=== PATIENT | male | born 1960 | race Two or more races ===

== ENCOUNTER 2018-10-07 17:30 | Inpatient (IN) | payer MEDICARE, MEDICAID ==
[~2018-10-07] VITALS: Ht 180.3 cm; Wt 74.8 kg
--- NOTE | 2018-10-07 19:10 | NUR ---
GPS ADMISSION NOTES: ADMITTED A 57-YR OLD MALE, FROM [facility]. PATIENT IS HOMELESS. ON 5150 FOR GD. PER HOLD, PT WAS FOUND TO BE SLEEPING AT GAS STATION AND PRESENTED WITH ALTERED MENTAL STATUS, SEVERE SUNBURNS FROM NOT ACCESSING MCC, MALODOROUS AND POOR HYGIENE. UPON FACE TO FACE ASSESSMENT, PATIENT IS AWAKE AND ALERT AND ORIENTED X1. PATIENT IS ANXIOUS, UNCOOPERATIVE, UNKEMPT, DISHEVELED, UNPREDICTABLE, ANGRY, IRRITABLE, CONFUSED, NO AGITATION NOTED. VERBALIZATION OF FEELINGS ENCOURAGED. REALITY ORIENTATION PROVIDED. PT. WAS ADVISED OF THE HOLD. PT'S RIGHTS DISCUSSED GUIDE TO PRESCRIPTION MEDICATIONS PROVIDED. IN NO APPARENT DISTRESS NOTED. BELONGINGS WERE INVENTORIED AND CHECKED FOR CONTRABAND. PT. IS UNDER THE PSYCHIATRIC CARE OF DR. KELLY ORDERS OBTAINED, AND UNDER THE MEDICAL CARE OF EDMOND FAIRCHILD. SEEN AND EXAMINED PT. AT BEDSIDE BY EDMOND FAIRCHILD. SKIN BODY ASSESSMENT DONE. WOUND CONSULT ORDERED. PT. REFUSED TO SIGN ADMITTING CONSENTS D/T MENTAL STATUS. BED LOCKED AND PLACED IN LOWEST POSITION TO MAINTAIN SAFETY. FALL PRECAUTIONS IMPLEMENTED. WILL CONTINUE TO MONITOR PT. Q15 MINS. FOR SAFETY AND BEHAVIOR. NO FAMILY TO NOTIFY OF PATIENT'S ADMISSION.
[2018-10-07 19:30] VITALS: BP 119/71
[2018-10-07 20:00] VITALS: BP 119/71
[2018-10-07] MEDS ORDERED: MAGNESIUM HYDROXIDE 30 ML UDC PO PRN (20:00)
[2018-10-07] MEDS ORDERED: ACETAMINOPHEN 325 MG TABLET PO PRN (20:00)
[2018-10-07] MEDS ORDERED: ZOLPIDEM TARTRATE 5 MG TABLET PO PRN (20:00)
[2018-10-07] MEDS ORDERED: LORAZEPAM 0.5 MG TABLET PO PRN (20:00)
[2018-10-07] MEDS ORDERED: MAG HYDROX/AL HYDROX/SIMETH 30 ML UDC PO PRN (20:00)
[2018-10-07] MEDS ORDERED: ARIP15TA3 PO (20:48)
[2018-10-07] MEDS ORDERED: ROSU20TA2 PO (20:48)
[2018-10-07] MEDS ORDERED: PRAV40TA3 PO (20:48)
[2018-10-07] MEDS ORDERED: FLUO20CA36 PO (20:48)
[2018-10-07] MEDS ORDERED: OLAN15TA3 PO (20:48)
[2018-10-07] MEDS ORDERED: BLOOD SUGAR DIAGNOSTIC 1 EACH STRIP IN ONE (22:00)
[2018-10-08 08:00] VITALS: BP 121/60
--- NOTE | 2018-10-08 12:25 | NUR ---
RN NOTES ADMINISTERED ATIVAN 1 MG PO PRN FOR ANXIETY, DELUSIONAL, AND ALCOHOL WINDROW AT THIS TIME PER PATIENT REQUEST, V/S TAKEN BP- 135/85, P-73, R-20, CONTINUED MONITORING.
[2018-10-08] MEDS: OLANZAPINE 5 MG/TAB.RAPDIS PO SCH ×2 (14:06→21:01)
--- NOTE | 2018-10-08 15:30 | NUR ---
rn notes medication were administered for anxiety effective, patient resting in the bed. continued monitoring.
[2018-10-08 16:00] VITALS: BP 104/72
[2018-10-08 20:07] VITALS: BP 111/64
[2018-10-08] MEDS: PRAVASTATIN SODIUM 20 MG TABLET PO SCH (21:32)
[2018-10-09 08:00] VITALS: BP_SYST 122; BP_SYST 131; BP_DIAS 80; BP_DIAS 90
[2018-10-09] MEDS: OLANZAPINE 5 MG/TAB.RAPDIS PO SCH ×2 (09:20→21:00)
--- NOTE | 2018-10-09 14:53 | NUR ---
INITIAL DISCHARGE PLAN: Pt may need SNF placement if refuses pt will be discharged to a homeless senior living. SW will help form a safe and proper discharge in collaboration with .
[2018-10-09 16:00] VITALS: BP 151/89
[2018-10-09 19:41] VITALS: BP 160/90
--- NOTE | 2018-10-09 21:53 | NUR ---
gps rn notes: patient refused his night time scheduled medications. per patient he doesn't need it and that he will talk to the doctor. will continue to monitor patient.
[2018-10-09 22:00] VITALS: BP 117/67
[2018-10-09] MEDS: PRAVASTATIN SODIUM 20 MG TABLET PO SCH (22:00)
[2018-10-10 08:00] VITALS: BP 144/98
[2018-10-10] MEDS: OLANZAPINE 5 MG/TAB.RAPDIS PO SCH ×2 (08:43→20:14)
--- NOTE | 2018-10-10 09:22 | NUR ---
WOUND CARE CONSULT: PT SMILED AND AGREED TO HAVE SKIN ASSESSMENT, THEN SUDDENLY REFUSED. WILL SEE PRN.
--- NOTE | 2018-10-10 10:20 | NUR ---
GPS/RN-NOTES PATIENT REFUSED FULL BODY ASSESSMENT BY THE WOUND NURSE RADHA. CHARGE NURSE AWARE.
--- NOTE | 2018-10-10 15:40 | NUR ---
GROUP NOTE: SW prompted pt to attend group on 10/10/18 at 2:30pm discussing conflict resolution techniques for while they are in the hospital and after discharge, but pt unable to participate in group.
[2018-10-10 16:00] VITALS: BP 128/90
[2018-10-10 20:17] VITALS: BP 128/91
[2018-10-10] MEDS: PRAVASTATIN SODIUM 20 MG TABLET PO SCH (21:19)
[2018-10-11 08:00] VITALS: BP 122/73
--- NOTE | 2018-10-11 08:30 | NUR ---
received pt. in am,no acute distress.alert and oriented x1,confused.vs stable..
[2018-10-11] MEDS: OLANZAPINE 5 MG/TAB.RAPDIS PO SCH (09:24)
--- NOTE | 2018-10-11 10:09 | NUR ---
DISCHARGE NOTE: Pt will be discharged at 1:00pm via [facility] to [address] Address: [address], [place] [address] . Pt is homeless and has no family to contact. Pt signed the homeless waiver and accepted transportation provided by hospital. Pt was given mental health resources and substance abuse resources to [address] [address] / and was encouraged to present at 9am on October. Additional resources included [facility] [address] [place] [address] and [facility] [address] [place] [address] . Pt was also given a homeless resource packet which includes hot meals, hot showers, shelters, and medical clinics. Pt was also encouraged to present at [facility] Address: [address], [place] [address] before 5pm on October. A referral to [facility] Address: [address], [place] [address] was also given. The multidisciplinary exitcare form was done, printed, signed, and given to the patient.
--- NOTE | 2018-10-11 11:30 | NUR ---
no changes in pt. efrain cont. to monitor freq.
--- NOTE | 2018-10-11 13:00 | NUR ---
seen and examined by dr. 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
--- NOTE | 2018-10-11 13:05 | NUR ---
refusing discharge photos.but anxious to leave.denies suicidal,homicidal ideation as well as auditory or visual hallucinations.
--- NOTE | 2018-10-11 13:20 | NUR ---
ambulated to lobby by sock liner to be transported with tap card.pt. stable.
--- NOTE | 2018-10-11 15:56 | NUR ---
Group Note: Pt attended group therapy session on 10/11/18 at 2:30pm discussing goal setting for while they are in the hospital and after discharge but was not engaged and did not participate due to cognitive impairment.
== END 2018-10-11 13:55 | disposition home or self-care (01) | DRG 885 ==
LOC: GPS 18:55
PROVIDERS: ADMIT Psychiatry & Neurology Psychiatry; ATTEND Nurse Practitioner Acute Care
DX: F20.0 Paranoid schizophrenia (principal); F03.90 Unspecified dementia, unspecified severity, without behavioral disturbance, psychotic disturbance, mood disturbance, and anxiety; Z59.0 Homelessness; F29 Unspecified psychosis not due to a substance or known physiological condition; E78.5 Hyperlipidemia, unspecified; F32.9 Major depressive disorder, single episode, unspecified; F10.20 Alcohol dependence, uncomplicated
CPT/HCPCS: 87081-TC